=== PATIENT | female | born 1975 | race Caucasian/White ===

== ENCOUNTER → 2023-12-26 07:37 | Outpatient (REF) | payer OTHER, SELFPAY | LOC: RCS 07:37 | PROVIDERS: ATTENDING PHYSICIAN Internal Medicine Cardiovascular Disease; FAMILY PHYSICIAN Family Medicine | DX: E78.2 Mixed hyperlipidemia (principal); Z82.49 Family history of ischemic heart disease and other diseases of the circulatory system; R07.89 Other chest pain | CPT/HCPCS: 93017 ==

== ENCOUNTER → 2025-02-11 08:03 | Outpatient (REF) | payer OTHER, SELFPAY | LOC: HWRCS 08:03 | PROVIDERS: ATTENDING PHYSICIAN Internal Medicine Cardiovascular Disease; FAMILY PHYSICIAN Family Medicine | DX: R07.89 Other chest pain (principal) | CPT/HCPCS: 78452; 93017; A9500 ==